=== PATIENT | male | born 1995 | race Two or more races ===

== ENCOUNTER 2018-05-15 03:26 | Emergency (ER) | payer OTHER ==
[~2018-05-15] VITALS: Ht 172.7 cm; Wt 88.5 kg
[2018-05-15 03:29] VITALS: BP 145/95
--- NOTE | 2018-05-15 03:35 | NUR ---
PT BRITRA FOUND IN MOTEL [place]ON[place] RESPS UNRESPONSIVE, NOW A/OX4 S/P NARCAN 2MG IV. PT ON MONITOR IN BED 2 WITH FRIEND AT BEDSIDE. PT DENYING ANY PAIN AT THIS TIME. WILL CONTINUE TO MONITOR.
--- NOTE | 2018-05-15 04:18 | NUR ---
Patient does not wish to proceed with medical care recommended by Dr. ROMERO. Patient given information related to possible complications, up to and including , which could occur as a result of leaving the hospital at this time. Patient verbalizes understanding of risks involved due to leaving against medical advice. Patient has signed AMA form. IV removed. Catheter intact and site benign. Pressure and 4x4 applied to site. No bleeding noted.
== END 2018-05-15 04:22 | disposition left against medical advice (07) ==
LOC: ER 03:28
DX: T40.1X1A Poisoning by heroin, accidental (unintentional), initial encounter (principal); Z88.2 Allergy status to sulfonamides; Z60.2 Problems related to living alone; Y92.89 Other specified places as the place of occurrence of the external cause

== ENCOUNTER 2018-06-09 17:53 | Emergency (ER) | payer OTHER ==
[~2018-06-09] VITALS: Ht 167.6 cm; Wt 65.8 kg
--- NOTE | 2018-06-09 18:00 | NUR ---
[id number], FOUND ON THE STREET, OXYCODONE OVERDOSE, NARCAN 4 SPRAY GIVEN ON SCENE. TO ER BED 14, HOOKED TO MANAGEMENT PROFESSIONAL, AWAITING MD CHAPMAN
--- NOTE | 2018-06-09 18:02 | NUR ---
DR CORNEJO AT BEDSIDE
[2018-06-09 18:30] LABS: BASOPHILS # (AUTO) 0.1 /CMM (0.0-0.2); BASOPHILS % (AUTO) 0.3 % (0.0-2.0); EOSINOPHILS % (AUTO) 0.7 % (0.0-6.0); HEMATOCRIT 38 % (39-51); HEMOGLOBIN 12.5 g/dL (13.5-17.5); LYMPHOCYTES # (AUTO) 1.4 /CMM (0.8-4.8); LYMPHOCYTES % (AUTO) 8.8 % (20.0-44.0); MEAN CORPUSCULAR HGB CONC 33 g/dl (31.0-36.0); MEAN CORPUSCULAR VOLUME 88 fL (80-96); MONOCYTES # (AUTO) 1.1 /CMM (0.1-1.30); MONOCYTES % (AUTO) 6.9 % (2.0-12.0); NEUTROPHILS # (AUTO) 13.1 /CMM (1.8-8.9); NEUTROPHILS % (AUTO) 83.3 % (43.0-81.0); PLATELET COUNT (AUTO) 330 /CMM (150-450); RED BLOOD CELL COUNT(AUTO) 4.26 MIL/uL (4.5-6.0); WHITE BLOOD COUNT (AUTO) 15.7 K/uL (4.3-11.0)
[2018-06-09] MEDS ORDERED: ONDANSETRON HCL/PF 4 MG/2 ML VIAL ONE (18:30)
[2018-06-09] MEDS ORDERED: ONDANSETRON HCL/PF 4 MG/2 ML VIAL IVP ONE (18:30)
[2018-06-09] MEDS ORDERED: IV NS 0.9% 1,000 ML BAG IV ONE ×2 (18:30→22:00)
[2018-06-09 18:43] LABS: CALCIUM, SERUM 8.9 mg/dL (8.5-10.1); CARBON DIOXIDE 28 mmol/L (21-32); CHLORIDE 99 mmol/L (98-107); CREATININE 1.3 mg/dL (0.6-1.3); GLUCOSE 120 mg/dL (74-106); POTASSIUM 3.6 mmol/L (3.5-5.1); SODIUM SERUM 138 mmol/L (136-145); UREA NITROGEN, BLOOD 15 mg/dL (7-18)
[2018-06-09 18:49] LABS: ALANINE AMINOTRANSFERASE 29 U/L (12-78); ALBUMIN 3.5 g/dL (3.4-5.0); ALKALINE PHOSPHATASE 88 U/L (46-116); ASPARTATE AMINOTRANSFERASE 31 U/L (15-37); BILIRUBIN,DIRECT 0.1 mg/dL (0.0-0.2); BILIRUBIN,TOTAL 0.4 mg/dL (0.2-1.0); LIPASE 430 U/L (73-393); TOTAL PROTEIN, SERUM 7.8 g/dL (6.4-8.2)
--- NOTE | 2018-06-09 18:54 | NUR ---
PT AWAKE, NOTED W CONFUSION AND SLURRED SPEECH. HOOKED TO WIRE WEB WORKER, KEPT SAFE AND COMFORTABLE. ONGOING IVF NS 1L TOLERATING WELL.
--- NOTE | 2018-06-09 19:28 | NUR ---
REPORT GIVEN TO ARABELLA RODRIGUEZ FOR GIDEON
[2018-06-09] MEDS ORDERED: NALOXONE PREFILLED SYRINGE 2 MG/2 ML SYRINGE ONE (21:41)
[2018-06-09] MEDS ORDERED: NALOXONE HCL 0.4 MG/ML AMPUL IV ONE (22:00)
--- NOTE | 2018-06-10 02:07 | NUR ---
Patient discharged to home in stable condition. Written and verbal after care instructions given. Patient verbalizes understanding of instruction. IV removed. Catheter intact and site benign. Pressure and 4x4 applied to site. No bleeding noted.
--- NOTE | 2018-06-10 02:07 | NUR ---
pt picked up by mother.
[2018-06-10 02:08] VITALS: BP 120/60
== END 2018-06-10 02:09 | disposition home or self-care (01) ==
LOC: ER 17:57
DX: T40.1X1A Poisoning by heroin, accidental (unintentional), initial encounter (principal); F19.10 Other psychoactive substance abuse, uncomplicated; R00.0 Tachycardia, unspecified; R11.2 Nausea with vomiting, unspecified; J34.89 Other specified disorders of nose and nasal sinuses; Z88.2 Allergy status to sulfonamides; Z60.2 Problems related to living alone; Y92.89 Other specified places as the place of occurrence of the external cause
CPT/HCPCS: 36415; 71045; 80048; 80076; 83690; 84484; 85025; 93005; 96361; 96374; 96375; 99284; J2310; J2405; J7030 ×2